=== PATIENT | female | born 1975 | race Caucasian/White ===

== ENCOUNTER → 2018-07-03 | Outpatient (REF) ==
--- NOTE | 2018-07-03 13:31 | REP ---
Clinical: Shoulder pain. Technique: Internal rotation, external rotation, and Y view of the right shoulder. Findings: Evidence for prior clavicle fracture and repair. Acromioclavicular and glenohumeral joints are intact and normal. Subacromial space is normal. No periarticular calcifications or loose bodies are identified. Surrounding soft tissues are unremarkable. Impression: Normal appearing acromioclavicular and glenohumeral joints. Electronically Signed by Herber Gallegos MD 07/03/2018 01:23 P
== END ==
LOC: M SMT 13:04
PROVIDERS: ATTEND Internal Medicine
DX: Z02.89 Encounter for other administrative examinations (principal)